=== PATIENT | female | born 2000 | race Caucasian/White ===

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

== ENCOUNTER 2022-08-03 10:46 | Emergency (ER) | payer OTHER, SELFPAY ==
[2022-08-03 10:51] VITALS: BP 140/94; O2SAT 100
[2022-08-03 11:08] VITALS: BP 139/82; PULSE 100; RESP 15; TEMP 36.8; O2SAT 100
[2022-08-03] MEDS: ONDANSETRON INJ 4 MG/2 ML VIAL IV PUSH (11:14)
[2022-08-03] MEDS: FAMOTIDINE 20 MG/2 ML VIAL IV PUSH (11:15)
[2022-08-03] MEDS: SODIUM CHLORIDE 0.9% IV 1,000 ML 999 ML IV CONT ×2 (11:15→12:05)
[2022-08-03 11:22] LABS: Basophils Percent Auto 0.3 % (0.2-1.2); Hematocrit 41.7 % (37.0-47.0); Hemoglobin 14.4 g/dL (12.0-15.0); Immature Granulocyte Absolute 0.05 K/mm3 (0.00-0.031); Immature Granulocyte Percent A 0.4 % (0-0.5); Lymphocytes Absolute Auto 0.92 K/mm3 (0.9-3.2); Lymphocytes Percent Auto 7.7 % (18.3-44.2); Mean Corpuscular HGB Conc 34.5 g/dl (32-36); Mean Corpuscular Hemoglobin 29.5 pg (26-34); Mean Corpuscular Volume 85.5 fl (80-100); Mean Platelet Volume 8.7 fl (7.4-10.4); Monocytes Absolute Auto 0.5 K/mm3 (0.1-0.6); Monocytes Percent Auto 4.3 % (2.6-8.5); Neutrophils Absolute Auto 10.4 K/mm3 (1.3-6.7); Neutrophils Percent Auto 87.3 % (45.5-73.1); Platelet Count Result 498 k/mm3 (150-375); Red Blood Count 4.88 M/mm3 (4.2-5.4); Red Cell Distribution Width 13.4 % (11.5-14.5); White Blood Count 11.9 K/mm3 (4.5-10.0)
--- NOTE | 2022-08-03 11:45 | ED.GENADULT ---
HPI - General Adult General Chief complaint: Nausea/Vomiting/Diarrhea Stated complaint: n/v Time Seen by Provider: 08/03/22 10:52 History of Present Illness HPI narrative: 21-year-old female presents to the emergency room for evaluation of nausea and vomiting that began yesterday morning. Also reports abdominal cramping. Related Data Allergies Allergy/AdvReac Type Severity Reaction Status Date / Time No Known Allergies Allergy Verified 08/03/22 12:21 Review of Systems Review of Systems: CONSTITUTIONAL: Denies fever, chills, or sweats. EYES: Denies visual changes, redness, or discharge. ENT: Denies rhinorrhea, congestion, sore throat, or otalgia. CARDIOVASCULAR: Denies chest pain, palpitations, or edema. RESPIRATORY: Denies cough or dyspnea. GASTROINTESTINAL: Per HPI reports abdominal pain and vomiting GENITOURINARY: Denies dysuria or hematuria. SKIN: Denies rash or itching. MUSCULOSKELETAL: Denies back pain, joint pain, or myalgia. NEUROLOGIC: Denies headache, numbness, dizziness, or weakness. PSYCHIATRIC: Denies anxiety or depression. PMFSH Past Medical History Medical History Anxiety GERD (gastroesophageal reflux disease) Nausea and vomiting Family History Family History (Updated 08/11/21 @ 14:09 by Manuela Barron MA) Father Hypertension Mother Hypertension Depression Social History Social History Smoking status: Never smoker Alcohol intake: never Substance use: current Other substance usage details: CBD Living arrangements: with family Gender identity (if verbalized by the patient): Female Spiritual care concerns: No Exam Narrative: GENERAL: Well-appearing, well-nourished, no physical limitations, and in no acute distress. HEAD: Normocephalic, atraumatic. EYES: Conjunctivae normal, PERRLA and EOMI. CHEST: Clear to auscultation. No respiratory distress. No wheezes rales or rhonchi. HEART: Regular rate and rhythm. No murmur heard. Normal peripheral pulses. ABDOMEN: Soft, periumbilical tenderness nondistended, normal active bowel sounds. BACK: No CVA tenderness EXTREMITIES: Normal range of motion. No edema. No clubbing or cyanosis SKIN: Warm, dry, no rash. No noted wounds NEURO: No focal deficits. Alert and oriented x3. MAEW. CN's II-XI intact bilaterally, normal gait PSYCH: Cooperative. Normal mood and affect. Course Vital Signs Vital signs: Vital Signs Blood Pressure 140/94 H 08/03/22 10:51 Pulse Oximetry 100 08/03/22 10:51 Temperature 36.8 C 08/03/22 11:08 Pulse Rate 100 08/03/22 11:08 Respiratory Rate 15 08/03/22 11:08 Blood Pressure 124/84 08/03/22 12:01 Pulse Oximetry 100 08/03/22 12:08 Oxygen Delivery Room Air 08/03/22 11:08 Medical Decision Making MDM Narrative Medical decision making narrative: 21-year-old female presented to emergency room complaining of nausea vomiting for 24 hours. Also complaining of abdominal cramping, likely related to the vomiting. Patient denied bloody or bilious vomiting. Patient was given 2 L of fluid, Zofran, Reglan and Bentyl. Patient's symptoms resolved. Patient was able to drink fluids and eat crackers without experiencing any further vomiting. Vital Signs Vital Signs: Vital Signs Blood Pressure 140/94 H 08/03/22 10:51 Pulse Oximetry 100 08/03/22 10:51 Temperature 36.8 C 08/03/22 11:08 Pulse Rate 100 08/03/22 11:08 Respiratory Rate 15 08/03/22 11:08 Blood Pressure 124/84 08/03/22 12:01 Pulse Oximetry 100 08/03/22 12:08 Oxygen Delivery Room Air 08/03/22 11:08 Lab Data 08/03/22 11:16 08/03/22 11:16 Labs: Lab Results 08/03/22 08/03/22 08/03/22 Range/Units 11:15 11:16 11:36 WBC 11.9 H (4.5-10.0) K/mm3 RBC 4.88 (4.2-5.4) M/mm3 Hgb 14.4 (12.0-15.0) g/dL Hct 41.7 (37.0-47.0) %
[2022-08-03] MEDS: DICYCLOMINE HCL INJ 20 MG/2 ML VIAL IM (11:53)
[2022-08-03 11:56] LABS: Appearance Urine Clear (Clear); Bacteria Urine None Seen /hpf; Bilirubin Urine Negative (Negative); Color Urine Yellow (Yellow); Glucose Urine UA Negative (Negative); Ketones Urine 3+ mg/dL (Negative); Leukocyte Esterase Ur Negative LEU/UL (Negative); Mucus Urine Present /lpf; Nitrate Urine Negative (Negative); Protein Urine 1+ mg/dL (Negative); Specific Grav Ur 1.028 (1.001-1.035); Squamous Epithelial Cell Urine Occasional /hpf (Few)
[2022-08-03 11:58] LABS: Add Urine Microscopic? YES
[2022-08-03 12:01] VITALS: BP 124/84; O2SAT 91
[2022-08-03 12:08] VITALS: O2SAT 100
[2022-08-03] MEDS: METOCLOPRAMIDE HCL INJ 10 MG/2 ML VIAL IV PUSH (12:21)
[2022-08-03] MEDS: diphenhydrAMINE HCl INJ 50 MG/ML VIAL 25 MG IV PUSH (12:21)
[2022-08-03 12:37] LABS: Anion Gap 15 mmol/L (8-16); Carbon Dioxide 18 mmol/L (22-30); Chloride 106 mmol/L (98-107); Potassium 3.9 mmol/L (3.4-5.0); Sodium 139 mmol/L (134-143)
[2022-08-03 12:38] LABS: Albumin Level 4.9 g/dL (3.7-5.6); Alkaline Phosphatase 102 U/L (45-116); Aspartate Amino Transferase 41 U/L (14-36); Blood Urea Nitrogen 11 mg/dL (8-21); Calcium 9.9 mg/dL (8.9-10.7); Estimated CRCL calculation 119 ml/min; Estimated Glomerular Filt Rate > 60; Glucose 144 mg/dL (65-110); Total Protein 8.3 g/dL (6.3-8.6)
[2022-08-03 12:45] LABS: Alanine Aminotransferase 43 U/L (6-35)
[2022-08-03 13:36] LABS: Lipase 117 U/L (23-300)
[2022-08-03 13:45] VITALS: BP 118/68; PULSE 72; O2SAT 99
== END 2022-08-03 13:46 | disposition home or self-care (01) ==
PROVIDERS: Emergency Provider Nurse Practitioner Family; PCP Family Medicine Adolescent Medicine
DX: R11.2 Nausea with vomiting, unspecified (principal); K21.9 Gastro-esophageal reflux disease without esophagitis
CPT/HCPCS: 36415; 80053; 81001; 83690; 85025; 87086; 96361; 96372; 96374; 96375; 99284; J0500; J1200; J2405; J2765; J7030